=== PATIENT | male | born 1960 | race Caucasian/White ===

== ENCOUNTER 2020-08-19 09:30 | Emergency (ER) | payer OTHER ==
[2020-08-19 10:01] LABS: HEMOGLOBIN 14.7 gm/dl (14.0-17.5); RED BLOOD COUNT 4.67 M/UL (4.20-5.50); WHITE BLOOD COUNT 5.5 K/UL (4.5-11.0)
[2020-08-19 10:48] LABS: BUN/CREATININE RATIO 17 (0-10)
[2020-08-19] MEDS ORDERED: CYCLOBENZAPRINE10 MG PO (11:04)
== END 2020-08-19 11:10 | disposition home or self-care (01) ==
LOC: ER1 09:30
PROVIDERS: Physician Assistant
DX: R10.9 Unspecified abdominal pain (principal); M54.5 Low back pain; R11.0 Nausea; I10 Essential (primary) hypertension; Z87.442 Personal history of urinary calculi; Z90.49 Acquired absence of other specified parts of digestive tract; Z88.5 Allergy status to narcotic agent; Z88.7 Allergy status to serum and vaccine; Z88.8 Allergy status to other drugs, medicaments and biological substances
CPT/HCPCS: 80053; 81001; 85025; 96374; 96375; 99284; J1885; J2270; J2405

== ENCOUNTER 2021-05-16 09:24 | Emergency (ER) | payer OTHER ==
[~2021-05-16 09:24] MED LIST: CYCLOBENZAPRINE10 MG PO
[2021-05-16 10:09] LABS: HEMOGLOBIN 13.8 gm/dl (14.0-17.5); RED BLOOD COUNT 4.49 M/UL (4.20-5.50); WHITE BLOOD COUNT 5.4 K/UL (4.5-11.0)
[2021-05-16 11:02] LABS: BUN/CREATININE RATIO 13 (0-10)
[2021-05-16] MEDS ORDERED: ASPIRIN CHEWABL81 MG PO (13:36)
[2021-05-16] MEDS ORDERED: ISOSORBIDE MONO60 MG PO (13:36)
== END 2021-05-16 14:40 | disposition home or self-care (01) ==
LOC: ER1 09:24
PROVIDERS: Emergency Medicine
DX: R07.89 Other chest pain (principal); E78.5 Hyperlipidemia, unspecified; I10 Essential (primary) hypertension
CPT/HCPCS: 71045; 80053; 82550; 82553; 84484; 85025; 85379; 93005; 99285

== ENCOUNTER → 2021-10-11 | Outpatient (CLI) | payer OTHER ==
[~2021-10-11] VITALS: Ht 188 cm; Wt 129.3 kg
[~2021-10-11] MED LIST changes: +ASPIRIN CHEWABL81 MG PO; +ISOSORBIDE MONO60 MG PO
== END ==
LOC: EROP 10:38
DX: U07.1 COVID-19 (principal); Z23 Encounter for immunization
CPT/HCPCS: M0222; Q0222